=== PATIENT | female | born 1980 | race Caucasian/White ===

== ENCOUNTER 2019-12-12 14:07 | Emergency (ER) | payer OTHER ==
[~2019-12-12] VITALS: Ht 167.6 cm; Wt 77.2 kg
[2019-12-12 14:09] VITALS: BP 147/90
[2019-12-12] MEDS ORDERED: IV NORMAL SALINE 1,000ML 1,000 ML IV ONE (14:15)
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
--- NOTE | 2019-12-12 14:44 | EKG ---
[address] [address] Test Date: 2019-12-12 Test Time: 14:28:38 Pat Name: MARLYS GALLO Department: Room: Gender: F [employer]: : 1980 Requested By: ELIU PANIAGUA Order Number: [id number] Reading MD: Measurements Intervals [place] Rate: 64 P: 6 MI: 148 QRS: 35 QRSD: 100 T: 28 QT: 414 QTc: 431 Interpretive Statements SINUS RHYTHM NORMAL ECG RI6.02 No previous ECG available for comparison
[2019-12-12] MEDS ORDERED: IOHEXOL 300 MG/ML 75 ML VIAL. IV ONE (15:00)
[2019-12-12 15:05] LABS: CALCIUM 8.4 mg/dL (8.5-10.1); CREATININE 0.9 mg/dL (0.6-1.0); GFR 69.3; POTASSIUM 3.1 mmol/L (3.5-5.1)
[2019-12-12 15:07] LABS: BASO % 1 % (0-3); EOS # 0.1 x10^3/uL (0.0-0.7); EOS % 2 % (0-3); HEMATOCRIT 38.7 % (36.0-47.0); HEMOGLOBIN 13.4 g/dL (12.0-15.5); LYMPH # 1.9 x10^3/uL (1.0-4.8); LYMPH % 31 % (24-48); MEAN CORPUSCULAR HEMOGLOBIN 33 pg (25-35); MEAN CORPUSCULAR HGB CONC 35 g/dL (31-37); MEAN CORPUSCULAR VOLUME 96 fL (79-100); MONO # 0.4 x10^3/uL (0.0-1.1); MONO % 6 % (0-9); NEUT # 3.6 x10^3uL (1.8-7.7); NEUT % 61 % (31-73); PLATELET COUNT 248 x10^3/uL (140-400); RED BLOOD COUNT 4.05 x10^6/uL (3.50-5.40); RED CELL DISTRIBUTION WIDTH 12.7 % (11.5-14.5)
[2019-12-12 15:11] LABS: ALBUMIN 4.1 g/dL (3.4-5.0); ALBUMIN/GLOBULIN RATIO 1.3 (1.0-1.7); TOTAL BILIRUBIN 0.4 mg/dL (0.2-1.0); TOTAL PROTEIN 7.2 g/dL (6.4-8.2)
--- NOTE | 2019-12-12 15:21 | RAD ---
EXAM: CT Head without IV contrast INDICATION: Reason: syncope / Spl. Instructions: / History: TECHNIQUE: Multi-detector row CT images were obtained of the head without the use of IV contrast. All CT scans performed at this facility utilize dose optimization techniques as appropriate to the exam, including the following: Automated exposure control and adjustment of the mA and/or KV according to patient size (this includes techniques or standardized protocols for targeted exams where dose is indication/reason for exam). COMPARISON: EXAM: CT Head without IV contrast FINDINGS: BRAIN PARENCHYMA: No evidence of acute intraparenchymal hemorrhage or infarct. There is low density in the inferior left cerebellum, suggesting a small, likely chronic inferior cerebellar infarct. VENTRICLES & EXTRA-AXIAL SPACES: Ventricles are within normal limits. Basilar cisterns are patent. No pathologic extra-axial fluid collection or mass. ORBITS: Orbital contents are unremarkable. SINUSES: Visualized paranasal sinuses and mastoid air cells are clear. OSSEOUS & SOFT TISSUES: Calvarium and skull base are intact. IMPRESSION: 1. No acute intracranial pathology. 2. Chronic small left inferior cerebellar infarct. If acute on chronic infarction is suspected, further imaging by MRI could be considered. Electronically signed by: Trever Rodriguez MD (12/12/2019 3:18 PM) [facility] [place]
--- NOTE | 2019-12-12 15:29 | RAD ---
EXAM: CT Abdomen and Pelvis with IV contrast INDICATION: Reason: abdominal pain / Spl. Instructions: / History: TECHNIQUE: Multi-detector row CT images were acquired from the lung bases through the abdomen and pelvis with the use of IV contrast. Sagittal and coronal images were acquired from the transaxial data. All CT scans performed at this facility utilize dose optimization techniques as appropriate to the exam, including the following: Automated exposure control and adjustment of the mA and/or KV according to patient size (this includes techniques or standardized protocols for targeted exams where dose is indication/reason for exam). IV CONTRAST: Administered ORAL CONTRAST: Not administered COMPARISON: None FINDINGS: LOWER CHEST: Unremarkable LIVER: Unremarkable BILIARY SYSTEM: Gallbladder is unremarkable. Bile ducts are not dilated. PANCREAS: Unremarkable SPLEEN: Unremarkable ADRENALS: Unremarkable KIDNEYS & URETERS: Unremarkable BLADDER: Unremarkable REPRODUCTIVE ORGANS: Left adnexa contains 2 dominant ovarian cysts that together measure 3.5 cm in diameter and are associated with asmall amount of left paraovarian soft tissue fat stranding. GASTROINTESTINAL: The stomach, small bowel, and colon are unremarkable. The appendix is not well seen. No findings of acute appendicitis are identified. MESENTERY/PERITONEUM/RETROPERITONEUM: Small amount of intermediate density pelvic free fluid. VASCULAR: Unremarkable LYMPH NODES: No adenopathy OSSEOUS & SOFT TISSUES: Unremarkable IMPRESSION: Small amount of pelvic free fluid with 2 left ovarian cysts noted. Query ovarian cyst rupture. Correlate with the clinical findings and if indicated, additional imaging by pelvic ultrasound could be considered. Otherwise no acute findings in the abdomen or pelvis on contrast enhanced CT. Electronically signed by: Trever Rodriguez MD (12/12/2019 3:26 PM) [facility] [place]
[2019-12-12 15:51] LABS: BILIRUBIN,URINE NEG (NEG); CLARITY,URINE CLEAR; COLOR,URINE YELLOW; GLUCOSE,URINE NEG (NEG)
[2019-12-12 15:52] LABS: BACTERIA,URINE 0 /HPF (0-FEW); NITRITE,URINE NEG (NEG); RBC,URINE RARE /HPF (0-2); SQUAMOUS EPITHELIAL CELL,UR FEW /LPF; UROBILINOGEN,URINE 0.2 mg/dL (0.2 mg/dL); WBC,URINE OCC /HPF (0-4)
== END 2019-12-12 15:44 | disposition home or self-care (01) ==
LOC: ER 14:07
DX: R10.30 Lower abdominal pain, unspecified (principal); R55 Syncope and collapse; N83.202 Unspecified ovarian cyst, left side; V49.49XA Driver injured in collision with other motor vehicles in traffic accident, initial encounter; Y93.I9 Activity, other involving external motion; Y92.89 Other specified places as the place of occurrence of the external cause; Y99.8 Other external cause status
CPT/HCPCS: 36415; 70450; 74177; 80053; 81001; 81025; 83690; 84484; 85025; 93005; 96360; 99285; J7030; Q9967